=== PATIENT | male | born 1985 | race Caucasian/White ===

== ENCOUNTER 2018-01-03 11:13 | Emergency (ER) | payer OTHER, MEDICAID ==
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
[2018-01-03] MEDS ORDERED: Ketorolac 60 MG/2 ML SDV IM ONE (11:49)
[2018-01-03] MEDS ORDERED: HYDROmorphone 2 MG/ML SDV IM STA (12:39)
[2018-01-03] MEDS ORDERED: Acetaminophen/oxyCODONE 325-5 MG Tab PO ONE (13:09)
[2018-01-03 14:07] VITALS: BP 132/81
== END 2018-01-03 14:05 | disposition home or self-care (01) ==
LOC: FB.ED 11:13
DX: M54.5 Low back pain (principal); Z88.6 Allergy status to analgesic agent
CPT/HCPCS: 72131; 96372; 99284; A9270; J1170; J1885

== ENCOUNTER 2018-01-04 15:29 | Emergency (ER) | payer OTHER, MEDICAID ==
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
[2018-01-04] MEDS ORDERED: Ketorolac 60 MG/2 ML SDV IM STA (15:58)
[2018-01-04] MEDS ORDERED: Acetaminophen/oxyCODONE 325-5 MG Tab PO STA (16:33)
[2018-01-04 17:14] VITALS: BP 146/91
== END 2018-01-04 16:47 | disposition home or self-care (01) ==
LOC: FB.ED 15:29
DX: M54.9 Dorsalgia, unspecified (principal); G89.29 Other chronic pain; Z79.899 Other long term (current) drug therapy; Z88.5 Allergy status to narcotic agent
CPT/HCPCS: 96372; 99283; A9270; J1885